=== PATIENT | female | born 1970 | race African-American/Black ===

== ENCOUNTER 2021-03-31 13:57 | Emergency (ER) | payer MEDICAID ==
[~2021-03-31] VITALS: Ht 162.6 cm; Wt 68.0 kg
[~2021-03-31 13:57] MED LIST: ACET-503 PO; HYDR25TA32 PO; LORA-478 PO
[2021-03-31 14:06] VITALS: BP 148/92
--- NOTE | 2021-03-31 14:23 | NUR ---
50 y/o female from home c/o left eye pain with burning and redness to left eye. Pt states pain began after waking up. Denies trauma/inury. Denies change in vision. 10/10 burning sensation to eye. Skin warm, dry, intact. AO x 4. VSS medhx: glaucoma, pre dm
--- NOTE | 2021-03-31 14:29 | NUR ---
PA Ly at bedside evaluating patient
[2021-03-31] MEDS ORDERED: TETRACAINE HCL/PF 0.5% OPTH 4 ML BTL OP ONE (14:40)
[2021-03-31] MEDS ORDERED: FLUORESCEIN OPTH STRIP 1 MG OP ONE (14:40)
[2021-03-31] MEDS ORDERED: TOMOMETER 1 DEV DEV MC ONE (14:46)
[2021-03-31] MEDS ORDERED: FLUORESCEIN OPTH STRIP 1 MG ONE (14:59)
--- NOTE | 2021-03-31 15:55 | NUR ---
Pt awake and alert. Does not appear in distress. Will continue to monitor
[2021-03-31] MEDS ORDERED: GAROS OP (16:19)
[2021-03-31] MEDS ORDERED: IBUP-2213 PO (16:19)
--- NOTE | 2021-03-31 16:27 | NUR ---
Patient discharged with v/s stable. Written and verbal after care instructions given and explained. Patient alert, oriented and verbalized understanding of instructions. Ambulatory with steady gait. All questions addressed prior to discharge. ID band removed. Patient advised to follow up with PMD. Rx of GENTAMICIN, IBUPROFEN given. Opportunity to ask questions provided and answered.
[2021-03-31 16:28] VITALS: BP 159/78
--- NOTE | 2021-03-31 16:31 | NUR ---
The patient's care was reviewed and supervised by Karyn Leach RN.
== END 2021-03-31 16:27 | disposition home or self-care (01) ==
LOC: MED 13:57
DX: S05.02XA Injury of conjunctiva and corneal abrasion without foreign body, left eye, initial encounter (principal); I10 Essential (primary) hypertension; Z88.6 Allergy status to analgesic agent; Z88.5 Allergy status to narcotic agent; Z88.0 Allergy status to penicillin; Z79.899 Other long term (current) drug therapy; X58.XXXA Exposure to other specified factors, initial encounter; Y93.89 Activity, other specified; Y92.89 Other specified places as the place of occurrence of the external cause; Y99.8 Other external cause status
CPT/HCPCS: 99283

== ENCOUNTER 2021-11-18 08:34 | Emergency (ER) | payer MEDICAID ==
[~2021-11-18] VITALS: Ht 162.6 cm; Wt 70.4 kg
[~2021-11-18 08:34] MED LIST changes: +GAROS OP; +IBUP-2213 PO
[2021-11-18 08:38] VITALS: BP 141/83
--- NOTE | 2021-11-18 08:42 | NUR ---
PT AMB TO BED 4.
--- NOTE | 2021-11-18 08:50 | NUR ---
Patient being evaluated by DR TAVAREZ at bedside.
[2021-11-18] MEDS ORDERED: KETOROLAC 30 MG/ML VIAL IM ONE (08:55)
--- NOTE | 2021-11-18 08:55 | NUR ---
pt c/o right foot pain x2 days denies injury or trauma.
[2021-11-18] MEDS ORDERED: NAPR-54 PO (08:58)
== END 2021-11-18 09:05 | disposition home or self-care (01) ==
LOC: MED 08:34
DX: M79.671 Pain in right foot (principal); I10 Essential (primary) hypertension; Z79.2 Long term (current) use of antibiotics; Z79.1 Long term (current) use of non-steroidal anti-inflammatories (NSAID); Z79.891 Long term (current) use of opiate analgesic; Z79.899 Other long term (current) drug therapy; Z88.5 Allergy status to narcotic agent; Z88.0 Allergy status to penicillin; Z88.8 Allergy status to other drugs, medicaments and biological substances
CPT/HCPCS: 82948; 96372; 99283; J1885

== ENCOUNTER 2022-04-28 09:49 | Emergency (ER) | payer MEDICAID ==
[~2022-04-28] VITALS: Ht 162.6 cm; Wt 74.8 kg
[~2022-04-28 09:49] MED LIST changes: +NAPR-54 PO
[2022-04-28 09:56] VITALS: BP 123/61
--- NOTE | 2022-04-28 10:15 | NUR ---
PT C/O SUBSTERNAL CHEST PRESSURE WORSE WITH PALPATION X2 DAYS.
--- NOTE | 2022-04-28 10:34 | NUR ---
Xray at bedside.
[2022-04-28 10:50] LABS: BASOPHILS % (AUTO) 0.3 % (0.0-2.0); EOSINOPHILS # (AUTO) 0.3 K/uL (0-0.4); EOSINOPHILS % (AUTO) 1.9 % (0.0-4.0); HEMATOCRIT 34.6 % (36-48); HEMOGLOBIN 11.2 g/dL (12.0-16.0); LYMPHOCYTES # (AUTO) 3.2 K/uL (2.5-16.5); LYMPHOCYTES % (AUTO) 22.9 % (20.5-51.1); MEAN CORPUSCULAR HEMOGLOBIN 31 pg (27-31); MEAN CORPUSCULAR HGB CONC 32 g/dL (33-37); MEAN CORPUSCULAR VOLUME 96.4 fL (80-94); MONOCYTES # (AUTO) 0.9 K/uL (0.8-1.0); MONOCYTES % (AUTO) 6.1 % (1.7-9.3); NEUTROPHILS # (AUTO) 9.6 K/uL (1.8-7.7); NEUTROPHILS % (AUTO) 68.8 % (42.2-75.2); PLATELET COUNT (AUTO) 283 K/uL (140-450); RED BLOOD CELL COUNT(AUTO) 3.59 MIL/uL (4.20-5.40); RED CELL DISTRIBUTION WIDTH 13.5 % (11.6-13.7)
[2022-04-28] MEDS ORDERED: HYDROcodone/APAP 5/325 MG 1 TAB TAB PO ONE (11:05)
[2022-04-28 11:14] LABS: ALBUMIN 2.8 g/dL (3.4-5.0); ANION GAP 8.4 (8-16); CARBON DIOXIDE 34.1 mmol/L (21-32); CREATININE 0.8 mg/dL (0.6-1.3); POTASSIUM 3.5 mmol/L (3.5-5.1); TOTAL BILIRUBIN 0.5 mg/dL (0.0-1.0)
[2022-04-28 12:36] VITALS: BP 106/62
[2022-04-28] MEDS ORDERED: ACET-8386 PO (13:47)
--- NOTE | 2022-04-28 14:00 | NUR ---
Patient discharged with v/s stable. Written and verbal after care instructions ABOUT CHEST WALL PAIN given and explained. Patient alert, oriented and verbalized understanding of instructions. Ambulatory with steady gait. All questions addressed prior to discharge. ID band removed. Patient advised to follow up with PMD. Rx of NORCO 5-325 given. Patient educated on indication of medication including possible reaction and side effects. Opportunity to ask questions provided and answered.
== END 2022-04-28 14:00 | disposition home or self-care (01) ==
LOC: MED 09:49
DX: R07.89 Other chest pain (principal); E11.9 Type 2 diabetes mellitus without complications; I10 Essential (primary) hypertension; J45.909 Unspecified asthma, uncomplicated; M79.7 Fibromyalgia; Z90.710 Acquired absence of both cervix and uterus; Z98.890 Other specified postprocedural states; Z79.1 Long term (current) use of non-steroidal anti-inflammatories (NSAID); Z79.2 Long term (current) use of antibiotics; Z79.899 Other long term (current) drug therapy; Z88.0 Allergy status to penicillin
CPT/HCPCS: 36415; 71045; 80053; 83880; 84484; 85025; 93005; 99285; Q0092

== ENCOUNTER 2022-12-18 08:23 | Emergency (ER) | payer MEDICAID ==
[~2022-12-18] VITALS: Ht 162.6 cm; Wt 68.0 kg
[~2022-12-18 08:23] MED LIST changes: +ACET-8905 PO
--- NOTE | 2022-12-18 08:46 | NUR ---
PT WHEELCHAIR ASSISTED TO BED 02
[2022-12-18 08:47] VITALS: BP 132/63; PULSE 90; RESP 20; TEMP 97; O2SAT 99
[2022-12-18 09:31] LABS: APPEARANCE,URINE CLEAR (CLEAR); BILIRUBIN,URINE NEGATIVE (NEGATIVE); BLOOD, URINE NEGATIVE (NEGATIVE); COLOR,URINE YELLOW (YELLOW); LEUKOCYTE ESTERASE ,URINE NEGATIVE (NEGATIVE); NITRITE, URINE NEGATIVE (NEGATIVE); UGLUCOSE 3+ (NEGATIVE)
[2022-12-18] MEDS ORDERED: KETOROLAC 30 MG/ML VIAL IM ONE (09:40)
[2022-12-18] MEDS ORDERED: diazePAM 5 MG TAB PO ONE (09:40)
[2022-12-18] MEDS ORDERED: DIAZ5TAB6 PO (10:44)
[2022-12-18] MEDS ORDERED: NAPR-54 PO (10:44)
[2022-12-18 10:55] VITALS: BP 132/63; PULSE 90; RESP 20; TEMP 97; O2SAT 99
--- NOTE | 2022-12-18 10:56 | NUR ---
Patient discharged with v/s stable. Written and verbal after care instructions given and explained. Patient alert, oriented and verbalized understanding of instructions. Ambulatory with to car. All questions addressed prior to discharge. ID band removed. Patient advised to follow up with PMD. Rx of VALIUM, NAPROXEN (SENT) given. Patient educated on indication of medication including possible reaction and side effects. Opportunity to ask questions provided and answered.
== END 2022-12-18 10:56 | disposition home or self-care (01) ==
LOC: MED 08:23
DX: M54.32 Sciatica, left side (principal); J45.909 Unspecified asthma, uncomplicated; E11.9 Type 2 diabetes mellitus without complications; I10 Essential (primary) hypertension; Z98.890 Other specified postprocedural states; Z79.899 Other long term (current) drug therapy; Z79.1 Long term (current) use of non-steroidal anti-inflammatories (NSAID); Z88.0 Allergy status to penicillin; Z88.5 Allergy status to narcotic agent
CPT/HCPCS: 81003; 81025; 96372; 99283; J1885

== ENCOUNTER 2023-01-20 20:30 | Emergency (ER) | payer MEDICAID ==
[~2023-01-20] VITALS: Ht 162.6 cm; Wt 68.0 kg
[~2023-01-20 20:30] MED LIST changes: +DIAZ5TAB6 PO
[2023-01-20 20:49] VITALS: BP 137/86; PULSE 86; RESP 20; TEMP 96.9; O2SAT 99
[2023-01-20 22:56] LABS: BASOPHILS # (AUTO) 0.1 K/uL (0.00-0.22); BASOPHILS % (AUTO) 0.5 % (0.0-2.0); EOSINOPHILS # (AUTO) 0.3 K/uL (0-0.4); EOSINOPHILS % (AUTO) 3.3 % (0.0-4.0); HEMATOCRIT 36.8 % (36-48); HEMOGLOBIN 12.1 g/dL (12.0-16.0); LYMPHOCYTES # (AUTO) 2.9 K/uL (2.5-16.5); LYMPHOCYTES % (AUTO) 26.9 % (20.5-51.1); MEAN CORPUSCULAR HEMOGLOBIN 30 pg (27-31); MEAN CORPUSCULAR HGB CONC 33 g/dL (33-37); MEAN CORPUSCULAR VOLUME 91.7 fL (80-94); MONOCYTES # (AUTO) 0.7 K/uL (0.8-1.0); MONOCYTES % (AUTO) 6.9 % (1.7-9.3); NEUTROPHILS # (AUTO) 6.6 K/uL (1.8-7.7); NEUTROPHILS % (AUTO) 62.4 % (42.2-75.2); PLATELET COUNT (AUTO) 263 K/uL (140-450); RED BLOOD CELL COUNT(AUTO) 4.01 MIL/uL (4.20-5.40); RED CELL DISTRIBUTION WIDTH 15.8 % (11.6-13.7); WHITE BLOOD COUNT (AUTO) 10.6 K/uL (4.8-10.8)
[2023-01-20 22:59] LABS: APPEARANCE,URINE CLEAR (CLEAR); BILIRUBIN,URINE NEGATIVE (NEGATIVE); BLOOD, URINE NEGATIVE (NEGATIVE); COLOR,URINE YELLOW (YELLOW); LEUKOCYTE ESTERASE ,URINE NEGATIVE (NEGATIVE); NITRITE, URINE NEGATIVE (NEGATIVE); PROTEIN,URINE NEGATIVE (NEGATIVE); UGLUCOSE 3+ (NEGATIVE); UROBILINOGEN,URINE 0.2 EU/dL (0.2 - 1)
[2023-01-20 23:12] LABS: INR 0.9 (0.8-1.2); PARTIAL THROMBOPLASTIN TIME 25.4 secs (22-35.6); PROTHROMBIN TIME 9.5 secs (10.8-13.4)
[2023-01-20 23:14] LABS: ALBUMIN 3.3 g/dL (3.4-5.0); ANION GAP 10.1 (8-16); CALCIUM 9.6 mg/dL (8.5-10.1); CARBON DIOXIDE 30.3 mmol/L (21-32); CREATININE 1.1 mg/dL (0.6-1.3); POTASSIUM 3.4 mmol/L (3.5-5.1); TOTAL BILIRUBIN 0.7 mg/dL (0.0-1.0); TOTAL PROTEIN, SERUM 8.4 g/dL (6.4-8.2)
[2023-01-21] MEDS ORDERED: ONDANSETRON 4 MG/2 ML VIAL IVP ONE (00:35)
[2023-01-21] MEDS ORDERED: MORPHINE SULFATE 4 MG/ML SYR IVP ONE (00:35)
[2023-01-21] MEDS ORDERED: KETOROLAC 15 MG/ML VIAL IVP ONE (00:35)
[2023-01-21] MEDS ORDERED: NAPR-54 PO (00:39)
[2023-01-21] MEDS ORDERED: ACET-8905 PO (00:39)
[2023-01-21 01:20] VITALS: BP 137/86; PULSE 86; RESP 20; TEMP 96.9; O2SAT 99
== END 2023-01-21 01:20 | disposition home or self-care (01) ==
LOC: MED 20:30
DX: R07.89 Other chest pain (principal); J45.909 Unspecified asthma, uncomplicated; E11.9 Type 2 diabetes mellitus without complications; I10 Essential (primary) hypertension; Z79.4 Long term (current) use of insulin; Z79.899 Other long term (current) drug therapy
CPT/HCPCS: 36415; 71045; 80053; 81003; 83880; 84484; 85025; 85610; 85730; 93005; 96365; 96375; 99285; J1885; J2270; J2405; Q0092